=== PATIENT | male | born 1960 ===

== ENCOUNTER 2020-11-26 06:00 | Day surgery (SDC) | payer OTHER ==
[~2020-11-26 06:00] MED LIST: COZAAR50 MG PO; FORTAMET500 MG PO
== END 2020-11-26 17:36 | disposition home or self-care (01) ==
LOC: CIR.AMB 06:00
PROVIDERS: ATTEND Colon & Rectal Surgery
DX: K64.8 Other hemorrhoids (principal); K64.4 Residual hemorrhoidal skin tags; Z20.822 Contact with and (suspected) exposure to COVID-19

== ENCOUNTER → 2021-03-05 | Outpatient (CLI) | payer OTHER | END | disposition home or self-care (01) | LOC: RAD 07:51 | PROVIDERS: ATTEND Orthopaedic Surgery Orthopaedic Trauma | DX: I10 Essential (primary) hypertension (principal); Z01.811 Encounter for preprocedural respiratory examination ==